=== PATIENT | male | born 1935 | race Caucasian/White ===

== ENCOUNTER 2023-04-07 14:19 | Inpatient (IN) | payer MEDICARE, MEDICAID, SELFPAY ==
[2023-04-07] VITALS (11 sets, daily range): BP systolic 151–220; BP diastolic 68–94; PULSE 62–82; RESP 14–19; TEMP 36.3–37; O2SAT 93–98; BMI 25.9
--- NOTE | 2023-04-07 14:41 | ECG_ITS ---
[facility] Test Date: 2023-04-07 Pat Name: Alex Gomez Department: Room: Gender: Male Celery Tier: : 1935 Requested By: Anthony Tian Order Number: [id number] Jill MD: Ellis Drake M.D. Measurements Intervals [place] Rate: 68 P: 14 VA: 215 QRS: 0 QRSD: 92 T: 12 QT: 413 QTc: 440 Interpretive Statements SINUS RHYTHM WITH FIRST DEGREE AV BLOCK MODERATE VOLTAGE CRITERIA FOR LVH, CONSIDER NORMAL VARIANT [MEETS CRITERIA IN ONE OF: R(aVL), S(V1), R(V5), R(V5/V6)+S(V1)] No previous ECG available for comparison Electronically Signed On 04-07-2023 16:52:16 CDT by Ellis Drake M.D. [email or web address]
--- NOTE | 2023-04-07 15:04 | CTR_ITS ---
PROCEDURE INFORMATION: Exam: CT Head Without Contrast Exam date and time: 04/07/2023 3:36 PM Age: 87 years old Clinical indication: Syncope and collapse; Surgery date: 6+ months; Surgery type: PT not a good historian, evidence of prior surgery seen in scan; Additional info: Hypotension syncope TECHNIQUE: Imaging protocol: Computed tomography of the head without contrast. Radiation optimization: All CT scans at this facility use at least one of these dose optimization techniques: automated exposure control; mA and/or kV adjustment per patient size (includes targeted exams where dose is matched to clinical indication); or iterative reconstruction. REPORTING DATA: Count of CT and Cardiac NM exams in prior 12 months: This patient has received 0 known CTs and 0 known cardiac nuclear medicine studies in the 12 months prior to the current study. COMPARISON: No relevant prior studies available. RADIATION DOSE METRICS: Total DLP (mGy-cm): 1212 FINDINGS: Brain: No hemorrhage. No edema. Moderate diffuse cerebral atrophy with prominence of the bifrontal extra-axial spaces. 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 No mass effect. Cerebral ventricles: No ventriculomegaly. Paranasal sinuses: Visualized sinuses are unremarkable. No fluid levels. Mastoid air cells: Visualized mastoid air cells are well aerated. Bones/joints: Left frontal craniotomy changes. No acute fracture. Soft tissues: Unremarkable. CT/CT head wo con* [id number] IMPRESSION: No acute intracranial abnormality.
--- NOTE | 2023-04-07 15:04 | XRR_ITS ---
PROCEDURE INFORMATION: Exam: XR Chest Exam date and time: 04/07/2023 3:15 PM Age: 87 years old Clinical indication: Other: Syncope; Additional info: Hypotension, syncope TECHNIQUE: Imaging protocol: Radiologic exam of the chest. Views: 1 view. COMPARISON: CT chest [facility] [id number] 12/02/2019 2:52 PM FINDINGS: Lungs: Ill-defined patulous opacities noted in the right lung. Pleural spaces: Unremarkable. No pleural effusion. No pneumothorax. Heart/Mediastinum: Unremarkable. No cardiomegaly. Bones/joints: Unremarkable. XR/XR chest 1V portable [id number] IMPRESSION: Ill-defined patulous opacities in the right lung suspicious for pneumonia.
[2023-04-07 15:41] LABS: Basophils % 0.3 %; Eosinophils # 0.1 10^3/uL (0.0-0.8); Eosinophils % 1.8 %; Hematocrit 39.2 % (42.0-52.0); Lymphocytes % 25.1 %; Mean Corpuscular HGB Conc 33.2 g/dL (30.0-36.0); Mean Corpuscular Hemoglobin 31.9 pg (28.0-34.0); Mean Corpuscular Volume 96.3 fl (80-94); Mean Platelet Volume 11.4 fL (7.4-10.4); Monocytes # 0.7 10^3/uL (0.2-0.9); Monocytes % 9.2 %; Neutrophils # 5.01 10^3/uL (1.8-7.7); Neutrophils % 63.2 %; Nucleated Red Blood Cells % 0 %; Platelet Count 249 10^3/cmm (130-400); Red Blood Count 4.07 10^6/uL (4.1-5.3); Red Cell Distribution Width 13.2 % (12.1-15.1); White Blood Count 7.9 10^3/uL (4.0-10.0)
[2023-04-07 16:00] LABS: Alanine Aminotransferase 17 U/L (0-41); Albumin Level 3.9 g/dL (3.5-5.2); Alkaline Phosphatase 54 U/L (40-130); Anion Gap 17.5 (5-19); Aspartate Amino Transferase 19 U/L (0-40); Blood Urea Nitrogen 22 mg/dL (8-23); C Reactive Protein 25.6 mg/L (0.0-4.9); Calcium 9.1 mg/dL (8.5-10.5); Carbon Dioxide 24 mmol/L (22-29); Chloride 100 mmol/L (98-107); Globulin 3.1 g/dL (1.3-4.6); Glucose 87 mg/dL (65-115); Magnesium 1.9 mg/dL (1.7-2.3); Osmolality Calculated 287 mOsm/kg (285-295); Potassium 4.5 mmol/L (3.5-5.1); Sodium 137 mmol/L (136-145); Total Bilirubin 0.6 mg/dL (0.15-1.2)
--- NOTE | 2023-04-07 16:02 | ED_ITS ---
HPI - Neuro Symptoms/Deficit General: Chief Complaint: Neuro Symptoms/Deficit Stated Complaint: Weakness, Slurred speech Time Seen by Provider: 04/07/23 14:54 History of Present Illness: Patient is here for the ER with complaints of increased weakness mild slurring of his speech and multiple falls over the last 3 to 4 days. Patient does have a stroke and has normal weakness in his right side. But that change in speech and the falls are new. Patient also complains of fever and chills and sudden drops of his blood pressure. Onset (ago): day(s) (Following over the last 3 to 4 days slurring of speech started yesterday) Timing confirmed by: family member Location: right arm and right leg History of same: Yes Severity: mild Quality: weak Relieving factors: none Exacerbating factors: none Context: gradual onset On Anticoagulants: Yes (Just 81 mg of aspirin) Associated symptoms: Reports fevers/chills and weakness; Deny chest pain, nausea or vomiting Treatments Prior to Arrival: none Review of Systems General: Reports: 10 or more systems reviewed and unremarkable except in HPI and below Const: Reports: fever(s) and chills Eyes: Denies: change in vision or photophobia ENMT: Denies: throat pain or odynophagia Card: Denies: chest pain, palpitations or irregular heart rhythm Resp: Reports: non-productive cough; Denies: dyspnea or productive cough GI: Denies: abdominal pain, nausea or vomiting : Denies: flank pain, difficulty urinating or dysuria Musc: Denies: neck pain, back pain or extremity pain Skin/Breast: Denies: rash Neuro: Reports: weakness in extremities and Slurred speech present Psych: Denies: anxiety or depression Endo: Denies: polyuria or polydipsia Ric/Lymph: Denies: easy bruising or easy bleeding PFSH ED PFSH: Social History Smoking and tobacco status: current every day smoker Alcohol intake: never Substance/Drug Use: never Physical Exam Const: COMMON NORMALS: average body habitus, patient oriented x3, no limitations, alert and well nourished HENMT: COMMON NORMALS: normocephalic, atraumatic, external ears normal, Normal external nose present and moist oral mucous membranes HEAD & SCALP: normocep halic and atraumatic NOSE: Normal external nose present EXTERNAL EAR: Yes external ears normal OTHER: Hard of hearing Eye: COMMON NORMALS: Equal, round and reactive pupils present, EOMs intact bilaterally, conjunctivae normal and no scleral icterus CONJUNCTIVA: Yes conjunctivae normal PUPIL: Yes Equal, round and reactive pupils present Neck/C-Spine: COMMON NORMALS: full ROM, no lymphadenopathy, supple, no meningeal signs, no JVD and Thyroid normal THYROID: Thyroid normal Lymph: LYMPHATIC: no lymphadenopathy noted Chest: COMMONS NORMALS: normal inspection of the chest and normal palpation of entire chest wall Resp: COMMON NORMALS: normal respiratory effort, No retractions, No use of accessory muscles and clear to auscultation bilaterally AUSCULTATION: clear to auscultation bilaterally Cardio: COMMON NORMALS: no JVD, regular rate, regular rhythm, S1 normal heart sound present, S2 normal heart sound present, No gallops present (Cardio), No clicks present (Cardio) and No murmurs present (Cardio) RATE: regular rate RHYTHM: regular rhythm HEART SOUNDS: S1 normal heart sound present and S2 normal heart sound present GI: COMMON NORMALS: Normal to inspection, nondistended, normoactive bowel sounds present, Soft to palpation, non-tender, No hepatosplenomegaly present, no masses and no bruits PALPATION: Yes Soft to palpation and Yes No hepatosplenomegaly present : COMMON NORMALS: Yes no CVA tenderness BLADDER/KIDNEY EXAM: Yes no CVA tenderness Back/Pelvis: COMMON NORMALS: no CVA tenderness Extremity: COMMON NORMALS: normal to inspection Neuro: COMMON NORMALS: patient oriented x3 and moves all extremities SENSORIUM/ORIENTATION: Yes alert MENINGEAL SIGNS: Yes no meningeal signs CRANIAL NERVES: Yes CN normal except as noted (Mild slurring of speech) SPEECH: abnormal speech (Mild slurring) MOTOR EXAM: Other motor observations present (Mild weakness in right lower extremity) Course Vital Signs: Vital signs: Vital Signs Temperature 97.4 F L 04/07/23 14:41 Pulse Rate 66 04/07/23 17:19 Respiratory Rate 16 04/07/23 17:19 Blood Pressure 154/78 04/07/23 17:19 Pulse Oximetry 94 04/07/23 17:19 Oxygen Delivery Me thod Room Air 04/07/23 17:19 MDM - Neuro Symptoms/Deficit Medical Decision Making Patient presents to the ER with complaints of falling several times over the last several days he says this is due to his blood pressure suddenly dropping and he numbers going down and his blood pressure rises but he is already on the ground. Patient also has been said he has been having more slurring of his speech and more right-sided weakness over the past couple days but has a history of stroke with right-sided weakness but no slurring of the speech. Physical exam was performed lab work and imaging was obtained chest x-ray showed ill- defined patchy opacity in the right lung suspicious for pneumonia. Head CT was negative lab work was essentially benign other than BUN 22 and creatinine 1.3. Is thought patient will be admitted for further work-up including probable head MRI and echo etc. Dr. Sherman was consulted he agreed with this. Patient will be given Zosyn 3.375 g IV in ER for his pneumonia and be admitted to the floor. Differential Diagnosis Likely cerebrovascular accident and transient cerebral ischemia; Unlikely carpal tunnel syndrome, convulsions, delirium, subarachnoid hemorrhage, peripheral neuropathy or multiple sclerosis Medical Records I reviewed the patient's medical records. Lab Data I reviewed the patient's lab results. 04/07/23 15:17 04/07/23 15:17 Radiology Impressions Chest X-Ray 04/07/23 15:04 IMPRESSION: Ill-defined patulous opacities in the right lung suspicious for pneumonia. Head CT 04/07/23 15:04 IMPRESSION: No acute intracranial abnormality. Laboratory Results WBC 7.9 10^3/uL (4.0-10.0) 04/07/23 15: RBC 4.07 10^6/uL (4.1-5.3) L 04/07/23 15:17 Hgb 13.0 g/dL (11.7-16.6) 04/07/23 15:17 Hct 39.2 % (42.0-52.0) L 04/07/23 15:17 MCV 96.3 fl (80-94) H 04/07/23 15:17 MCH 31.9 pg (28.0-34.0) 04/07/23 15:17 MCHC 33.2 g/dL (30.0-36.0) 04/07/23 15:17 RDW 13.2 % (12.1-15.1) 04/07/23 15:17 Plt Count 249 10^3/cmm (130-400) 04/07/23 15:17 MPV 11.4 fL (7.4-10.4) H 04/07/23 15:17 Neut % (Auto) 63.2 % 04/07/23 15:17 Lymph % (Auto) 25.1 % 04/07/23 15:17 [place] % (Auto) 9.2 % 04/07/23 15:17 Eos % (Auto) 1.8 % 04/07/23 15:17 Baso % (Auto) 0.3 % 04/07/23 15:17 Neut # (Auto) 5.01 10^3/uL (1.8-7.7) 04/07/23 15:17 Lymph # (Auto) 2.0 10^3/uL (0.8-4.8) 04/07/23 15:17 [place] # (Auto) 0.7 10^3/uL (0.2-0.9) 04/07/23 15:17 Eos # (Auto) 0.1 10^3/uL (0.0-0.8) 04/07/23 15:17 Baso # (Auto) 0.0 10^3/uL (0.0-0.1) 04/07/23 15:17 Nucleated RBC % (auto) 0 % 04/07/23 15:17 Nucleated RBCs # 0.0 /100WBC 04/07/23 15:17 Sodium 137 mmol/L (136-145) 04/07/23 15:17 Potassium 4.5 mmol/L (3.5-5.1) 04/07/23 15:17 Chloride 100 mmol/L (98-107) 04/07/23 15:17 Carbon Dioxide 24 mmol/L (22-29) 04/07/23 15:17 Anion Gap 17.5 (5-19) 04/07/23 15:17 BUN 22 mg/dL (8-23) 04/07/23 15:17 Creatinine 1.3 mg/dL (0.7-1.2) H 04/07/23 15:17 GFR Calculation Not Reportable 04/07/23 15:17 Glucose 87 mg/dL (65-115) 04/07/23 15:17 Calculated Osmolality 287 mOsm/kg (285-295) 04/07/23 15:17 Calcium 9.1 mg/dL (8.5-10.5) 04/07/23 15:17 Magnesium 1.9 mg/dL (1.7-2.3) 04/07/23 15:17 Total Bilirubin 0.6 mg/dL (0.15-1.2) 04/07/23 15:17 AST 19 U/L (0-40) 04/07/23 15:17 ALT 17 U/L (0-41) 04/07/23 15:17 Alkaline Phosphatase 54 U/L (40-130) 04/07/23 15:17 C-Reactive Protein 25.6 mg/L (0.0-4.9) H 04/07/23 15:17 Total Protein 7.0 g/dL (6.6-8.7) 04/07/23 15:17 Albumin 3.9 g/dL (3.5-5.2) 04/07/23 15:17 Globulin 3.1 g/dL (1.3-4.6) 04/07/23 15:17 EKG Data EKG 1: I personally reviewed and interpreted this EKG as follows: EKG interpretation date: 04/07/23 EKG interpretation time: 14:55 Interpretation: EKG showed rate of 60 bpm WV of 215, QRS of 92, QTc of 440, sinus rhythm with first-degree AV block, moderate voltage criteria for LVH consider normal variant, no ST-T wave changes. Discharge Plan Discharge Patient Disposition: Admitted As Inpatient Clinical Impression: Cerebrovascular accident, Community acquired pneumonia Condition: Stable Prescriptions: No Action Levemir FlexTouch U-100 Insuln 100 unit/mL (3 mL) insulin pen See Rx Instructions .ROUTE .COMPLEX Rx Instructions: 22 units in the am and 24 units at bedtime aspirin [Adult Low Dose Aspirin] 81 mg tablet,delayed release (DR/EC) 81 mg PO DAILY amlodipine 5 mg tablet 5 mg PO QAM tamsulosin 0.4 mg capsule 0.4 mg PO BEDTIME metformin 1,000 mg tablet 1,000 mg PO BID benazepril 40 mg tablet 40 mg PO QAM glipizide 5 mg tablet See Rx Instructions .ROUTE .COMPLEX Rx Instructions: 5mg po qam and 10mg po qpm metoprolol tartrate 25 mg tablet 25 mg PO BID duloxetine 60 mg capsule,delayed release(DR/EC) 60 mg PO DAILY Referrals: Farhat Dominguez MD [Primary Care Provider] - Coding Level of Care Code ED Pediatric Clinical Nurse Specialist for Carmina Mccarthy
--- NOTE | 2023-04-07 16:16 | PC.PHAR ---
pt and pts family brought in pts medications-pts family didnt bring in the cymbalta 60mg daily filled 04/01/23 90d/s pts family states they think the pt is still taking-also didnt bring in aspirin 81mg but states the pt is taking-
[2023-04-07] MEDS: piperacillin-tazobactam 3.375 GM in sodium chloride 0.9% (plus) 50 ML IV (17:24)
--- NOTE | 2023-04-07 18:02 | CTR_ITS ---
PROCEDURE INFORMATION: Exam: CTA Head Without And With Contrast, Arteriography Exam date and time: 04/07/2023 6:18 PM Age: 87 years old Clinical indication: Weakness; Prior surgery; Surgery date: 6+ months; Surgery type: Tbi unknown time frame. PT not a good historian; Additional info: Slurred speech, right handed weakness TECHNIQUE: Imaging protocol: Computed tomographic angiography of the head without and with contrast. Exam focused on the arteries. 3D rendering (Not supervised by radiologist): MIP and/or 3D reconstructed images were created by the technologist. Radiation optimization: All CT scans at this facility use at least one of these dose optimization techniques: automated exposure control; mA and/or kV adjustment per patient size (includes targeted exams where dose is matched to clinical indication); or iterative reconstruction. Contrast material: OMNI 350; Contrast volume: 100 ml; Contrast route: INTRAVENOUS (IV); REPORTING DATA: Count of CT and Cardiac NM exams in prior 12 months: This patient has received 0 known CTs and 0 known cardiac nuclear medicine studies in the 12 months prior to the current study. COMPARISON: CT head wo con* [id number] 04/07/2023 3:36 PM RADIATION DOSE METRICS: Total DLP (mGy-cm): 1535 FINDINGS: ANTERIOR CIRCULATION: Right internal carotid artery: Diffuse wall calcification of the intracranial segment with mild luminal stenosis. No evident severe stenosis or occlusion. Right middle cerebral artery: No occlusion or significant stenosis. No aneurysm. Right anterior cerebral artery: No occlusion or significant stenosis. No aneurysm. Left internal carotid artery: Diffuse wall calcification of the intracranial segments with mild luminal stenosis. No evident severe stenosis or occlusion. Left middle cerebral artery: No occlusion or significant stenosis. No aneurysm. Left anterior cerebral artery: No occlusion or significant stenosis. No aneurysm. POSTERIOR CIRCULATION: Right vertebral artery: Segments of mild luminal stenosis noted. No occlusion or severe stenosis. No aneurysm. Left vertebral artery: Segments of mild luminal stenosis noted. No occlusion or severe stenosis. No aneurysm. Basilar artery: No occlusion or significant stenosis. No aneurysm. Right posterior cerebral artery: No occlusion or significant stenosis. No aneurysm. Left posterior cerebral artery: No occlusion or significant stenosis. No aneurysm. HEAD: Brain: No definite mass, mass effect, or midline shift. Cerebral ventricles: Normal. No ventriculomegaly. Bones/joints: No acute fracture. Paranasal sinuses: Visualized sinuses are normal. No fluid levels. Mastoid air cells: Visualized mastoids are normal. No mastoid effusion. Soft tissues: Unremarkable. PROCEDURE INFORMATION: Exam: CTA Neck Without And With Contrast Exam date and time: 04/07/2023 6:18 PM Age: 87 years old Clinical indication: Weakness; Prior surgery; Surgery date: 6+ months; Surgery type: Tbi unknown time frame. PT not a good historian; Additional info: Slurred speech, right handed weakness TECHNIQUE: Imaging protocol: Computed tomographic angiography of the neck without and with contrast. 3D rendering (Not supervised by radiologist): MIP and/or 3D reconstructed images were created by the technologist. Radiation optimization: All CT scans at this facility use at least one of these dose optimization techniques: automated exposure control; mA and/or kV adjustment per patient size (includes targeted exams where dose is matched to clinical indication); or iterative reconstruction. Contrast material: OMNI 350; Contrast volume: 100 ml; Contrast route: INTRAVENOUS (IV); REPORTING DATA: Count of CT and Cardiac NM exams in prior 12 months: This patient has received 0 known CTs and 0 known cardiac nuclear medicine studies in the 12 months prior to the current study. COMPARISON: CT head wo con* [id number] 04/07/2023 3:36 PM RADIATION DOSE METRICS: Total DLP (mGy-cm): 1535 FINDINGS: Right common carotid artery: No stenosis. No dissection or occlusion. Right internal carotid artery: Mild stenosis at the origin. No dissection or occlusion. Right external carotid artery: No occlusion or stenosis of the origin. Left common carotid artery: No stenosis. No dissection or occlusion. Left internal carotid artery: Mild stenosis at the origin. No dissection or occlusion. Left external carotid artery: No occlusion or stenosis of the origin. Right vertebral artery: No stenosis. No dissection or occlusion. Left vertebral artery: No stenosis. No dissection or occlusion. Soft tissues: Normal. No significant soft tissue swelling. Bones/joints: No acute fracture. Lungs: 2.8 cm mass noted in the right lung apex. CT/CT angio headneck* [id number] IMPRESSION: No large vessel occlusion. IMPRESSION: 1. Mild stenosis at the origins of the internal carotid arteries. No severe stenosis or occlusion. 2. 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 REFERENCES: NASCET CRITERIA. The degree of stenosis in the cervical segment of the internal carotid artery is based on NASCET criteria. Normal is no stenosis. Mild is less than 50% stenosis. Moderate is 50-69% stenosis. Severe is 70% to 99% stenosis. Total occlusion is no detectable patent lumen.
--- NOTE | 2023-04-07 18:07 | USCV_ITS ---
Alex Gomez Age: 87 Gender: M : 1935 Exam Date: 04/07/2023 19:14 Ordering Phys: Loc Machuca MD Technologist: JEANNETTE Exam Location: [facility] [place] Indication: slurred speech. No history of cardiac intervention per patient. BP: 154 / 78 HR: 69 Rhythm: Sinus Technical Quality: Adequate MEASUREMENTS (Male / Female) Normal Values 2D ECHO LV Diastolic Diameter PLAX 4.4 cm 4.2 - 5.9 / 3.9 - 5.3 cm LV Systolic Diameter PLAX 2.7 cm IVS Diastolic Thickness 1.5 cm 0.6 - 1.0 / 0.6 - 0.9 cm IVS Systolic Thickness 2.2 cm LVPW Diastolic Thickness 1.3 cm 0.6 - 1.0 / 0.6 - 0.9 cm LVPW Systolic Thickness 1.9 cm LVOT Diameter 2.0 cm LV Ejection Fraction 2D Teich 70.3 % LV Ejection Fraction MOD 2C 54.8 % LV Ejection Fraction 2C AL 55.7 % LA Diameter 3.8 cm LA Width 3.9 cm LA Height 4.4 cm RA Width 3.6 cm RA Height 5.0 cm Aorta at Sinotubular Diameter 3.3 cm IVC Diameter 1.6 cm M-MODE Aortic Annulus Diameter 3.6 cm LA Ao Ratio MM 1.1 MV E Point Septal Separation 0.5 cm DOPPLER AV Peak Velocity 94.0 cm/s LVOT Peak Velocity 74.0 cm/s AV Area Cont Eq vti 2.7 cm squared AV Area Cont Eq pk 2.4 cm squared MV Area PHT 2.2 cm squared Mitral E to A Ratio 0.6 MV E' Velocity 34.5 cm/s Mitral E to MV E' Ratio 11.1 Mitral E to LV E' Lateral Ratio 9.7 Mitral E to LV E' Septal Ratio 13.2 TV Peak E Velocity 44.0 cm/s PV Peak Velocity 83.0 cm/s RV Acceleration Time 0.1 s RV Ejection Time 0.3 s RV AcT/ET 0.3 FINDINGS Left Ventricle Left ventricle is normal in size. LV systolic function is normal with EF of 60 to 65%. No regional wall motion abnormalities are seen. Grade 1 diastolic dysfunction Right Ventricle Normal in size and function Right Atrium Normal in size Left Atrium Normal in size Mitral Valve Mild mitral annular calcification is seen. Mild mitral regurgitation. Aortic Valve Aortic valve is thickened. No significant stenosis or regurgitation. Tricuspid Valve Mild tricuspid regurgitation. Insufficient TR jet to calculate RVSP Pulmonic Valve Not well-visualized. Pericardium Normal Aorta Normal in size IVC Not well visualized CONCLUSIONS LV systolic function is normal with EF of 60 to 65%. Grade 1 diastolic dysfunction. Mild mitral regurgitation Mild tricuspid regurgitation. No comparison studies are available Ellis Drake MD (Electronically Signed) Final Date: 08 Apr 2023 12:56 S
--- NOTE | 2023-04-07 18:10 | P.HP_ITS ---
Providers/Chief Complaint Primary Care Provider: Farhat Dominguez MD Chief Complaint: Weakness, Slurred speech History of Present Illness Alex Gomez is a 87 year old male with a past medical history of hypertension, history of COPD, history of insulin-dependent type 2 diabetes mellitus, history of CVAs who presents to [facility] due to slurring of his words, unsteadiness, falls, right-sided weakness, fevers, cough. Currently patient is alert to person, to place, not to time, he is having slurring of his words, having word finding difficulty, he does tell me that he has been having this for the last week, so his last known well normal was roughly a week ago, he tells me for the last week, he has been having slurring of his words, he has been falling, feeling very unsteady on his feet, today he fell and hit his head, that is why he went to an outpatient clinic. He also tells me that he has had a stroke in the past, I am not able to discern if he had any focal neurologic deficits persisting he tells me that it was a bad stroke, but he has been doing fine from it, I was told by the ER provider that he has some residual right- sided deficits, but I was not able to confirm this with patient, he does have some right-sided arm weakness and hand weakness on examination. He has some word finding difficulties on it is very difficult to discern if this is new or not, but definitely has slurring of his words, I cannot see any facial droop. He denies any visual changes. No blurry vision. He tells me he has not been feeling good for the last week, he has been having a cough, fevers he does report smoking, has a diagnosis of COPD, no wheezing, no wheezing on exam he is on room air, he is on normotensive he is afebrile. Denies any nausea, no vomiting, abdominal pain. Denies any cardiovascular history. No chest pain. Does report a prior history of strokes, again he states that the big 1, but he was doing fine he is not exactly able to tell me when he had the stroke he tells me he lives at home with his son who drove him here to the hospital from an outpatient clinic. I was called by the ER provider, as there was concerns for a CVA, and chest x-ray showed pneumonia, currently patient's NIH stroke scale is 6, his last known well normal was roughly a week ago, his head CT had no acute intracranial bleed Review of Systems Const: Reports: fever(s) Card: Denies: chest pain Resp: Reports: dyspnea and non-productive cough GI: Denies: abdominal pain : Denies: flank pain or difficulty urinating Musc: Reports: joint pain Skin/Breast: Denies: rash Neuro: Reports: headache(s), weakness in extremities, lack of coordination, difficulty walking, frequent falls and difficulty communicating thoughts; Denies: numbness in extremities, dizziness or confusion Psych: Denies: anxiety Medications/Allergies Home Medications Medication Instructions Recorded Confirmed Last Taken Type aspirin 81 mg tablet,delayed 81 mg PO DAILY 11/24/19 04/07/23 Unknown History release (Adult Low Dose Aspirin) insulin detemir U-100 100 unit/mL See Rx Instructions .Route .COMPLEX 11/24/19 04/07/23 04/07/23 History (3 mL) subcutaneous pen (Levemir FlexTouch U-100 Insulin) amlodipine 5 mg tablet 5 mg PO QAM 04/07/23 04/07/23 04/07/23 History benazepril 40 mg tablet 40 mg PO QAM 04/07/23 04/07/23 04/07/23 History duloxetine 60 mg capsule,delayed 60 mg PO DAILY 04/07/23 04/07/23 Unknown History release glipizide 5 mg tablet See Rx Instructions .Route .COMPLEX 04/07/23 04/07/23 04/07/23 History metformin 1,000 mg tablet 1,000 mg PO BID 04/07/23 04/07/23 04/07/23 History metoprolol tartrate 25 mg tablet 25 mg PO BID 04/07/23 04/07/23 04/07/23 History tamsulosin 0.4 mg capsule 0.4 mg PO BEDTIME 04/07/23 04/07/23 04/06/23 History Allergies Allergy/AdvReac Type Severity Reaction Status Date / Time Penicillins AdvReac unknown Verified 04/07/23 13:30 PFSH Acute PFSH: Medical History (Updated 04/07/23 @ 18:19 by Loc Machuca MD) Carotid artery occlusion History of BPH History of COPD History of CVA (cerebrovascular accident) History of hypertension History of type 2 diabetes mellitus Surgical History (Updated 04/07/23 @ 18:17 by Loc Machuca MD) History of brain surgery History of cholecystectomy Family History (Updated 04/07/23 @ 18:17 by Loc Machuca MD) Mother Cancer Father Kidney infection Social History Smoking and tobacco status: current every day smoker Alcohol intake: never Substance/Drug Use: never Vitals/I&O/Wt Last Vital Signs Temp 97.4 F L 04/07/23 14:41 Pulse 66 04/07/23 17:19 Resp 16 04/07/23 17:19 BP 154/78 04/07/23 17:19 Pulse Ox 94 04/07/23 17:19 O2 Del Method Room Air 04/07/23 17:19 Weight last 48 hrs Weight 86.636 kg Physical Exam Const: COMMON NORMALS: no acute distress and patient oriented x3 GENERAL APPEARANCE: cooperative, well kempt and well developed HENMT: COMMON NORMALS: normocephalic, Normal external nose present and oropharynx normal HEAD & SCALP: normocephalic FACE & SINUS: normal facial exam NOSE: Normal external nose present MOUTH: Normal oral and palatal mucosa present THROAT: posterior oropharynx normal Eye: COMMON NORMALS: Equal, round and reactive pupils present, EOMs intact bilaterally, conjunctivae normal and no scleral icterus CONJUNCTIVA: Yes conjunctivae normal PUPIL: Yes Equal, round and reactive pupils present Neck/C-Spine: COMMON NORMALS: full ROM, no lymphadenopathy, no meningeal signs, no JVD, Thyroid normal and No carotid bruits THYROID: Thyroid normal Lymph: LYMPHATIC: no lymphadenopathy noted Chest: COMMONS NORMALS: normal inspection of the chest Resp: COMMON NORMALS: normal respiratory effort, No retractions, No use of accessory muscles and clear to auscultation bilaterally AUSCULTATION: clear to auscultation bilaterally Cardio: COMMON NORMALS: regular rate, regular rhythm, S1 normal heart sound present, S2 normal heart sound present, No murmurs present (Cardio) and Peripheral pulses 2+ throughout RATE: regular rate RHYTHM: regular rhythm HEART SOUNDS: S1 normal heart sound present and S2 normal heart sound present PERIPHERAL PULSES: Peripheral pulses 2+ throughout GI: COMMON NORMALS: Normal to inspection, nondistended, normoactive bowel sounds present, Soft to palpation and non-tender PALPATION: Yes Soft to palpation : COMMON NORMALS: Yes no CVA tenderness BLADDER/KIDNEY EXAM: Yes no CVA tenderness Back/Pelvis: COMMON NORMALS: no CVA tenderness Extremity: COMMON NORMALS: normal to inspection, full ROM, capillary refill normal, no calf tenderness and no pedal edema Neuro: OTHER: [id number] abnormal bilaterally Pupils equal round reactive to light Extraocular movements intact Right upper extremity weakness, 3 out of 5 compared to 5 out of 5 on the left Has trouble coordinating on the right Bilateral lower extremity strength difficult to discern, as patient complains of severe bilateral knee pain, but strength is intact bilaterally, [id number] difficult to discern given severe pain Does have word finding difficulty Has slurring of his words Extremely mild right-sided facial droop, Cranial nerves II to XII grossly intact Psych: COMMON NORMALS: mental status grossly normal, Normal thought process present, cooperative and speech normal APPEARANCE: Yes well kempt SPEECH: Yes normal speech THOUGHT PROCESS: Normal thought process present Skin: COMMON NORMALS: turgor normal and no jaundice GENERAL SKIN EXAM: turgor normal Data 04/07/23 15:17 04/07/23 15:17 Micro: Microbiology 04/07/23 16:15 Blood Culture - Preliminary Blood SPECIMEN COLLECTED 04/07/23 16:20 Blood Culture - Preliminary Blood SPECIMEN COLLECTED A&P Assessment and plan (1) Acute CVA (cerebrovascular accident): (2) Pneumonia: (3) Acute kidney injury: (4) History of COPD: (5) History of BPH: (6) History of CVA (cerebrovascular accident): (7) History of hypertension: (8) History of type 2 diabetes mellitus: (9) Cerebrovascular accident: Qualifiers: CVA mechanism: unspecified Qualified Code(s): I63.9 - Cerebral infarction, unspecified (10) Community acquired pneumonia: Qualifiers: Laterality: right Lung location: unspecified part of lung Qualified Code(s): J18.9 - Pneumonia, unspecified organism (11) COPD (chronic obstructive pulmonary disease): (12) Encounter for smoking cessation counseling: Plan Acute CVA -Word finding difficulty, slurring of his words, right upper extremity weakness for the last week, last known well normal unknown, NIH stroke scale 6, out of tPA window -History of recurrent CVAs Plan -CT of head and neck -Neurochecks, aspiration precautions, 90 stroke scale -Telemetry monitoring -IV fluids -Monitor blood pressures closely -PT OT, speech therapy tonyal, nurse's bedside dysphagia eval Pneumonia -Does have COPD -Has radiographic evidence of pneumonia -Has received Zosyn in the emergency room, does have a penicillin allergy will monitor on the floors -Start Rocephin -Start Zosyn -DuoNeb treatments Insulin-dependent type 2 diabetes mellitus, low-dose sliding scale We will get a lipid panel Serial EKGs, serial troponins, telemetry monitoring, cardiac echo MUSHTAQ IV fluids Extensive counseling about smoking cessation counseling, given his COPD, now recurrent CVAs Lovenox for DVT prophylaxis Full code Attestations Medical Necessity Statement*: Patient requires hospitalization, inpatient, greater than 2 minutes, for acute CVA, pneumonia, MUSHTAQ Diagnoses Acute CVA (cerebrovascular accident) I63.9 Pneumonia J18.9 Acute kidney injury N17.9 History of COPD Z87.09 History of BPH Z87.438 History of CVA (cerebrovascular accident) Z86.73 History of hypertension Z86.79 History of type 2 diabetes mellitus Z86.39 Cerebrovascular accident I63.9 CVA mechanism: unspecified Community acquired pneumonia J18.9 Laterality: right Lung location: unspecified part of lung COPD (chronic obstructive pulmonary disease) J44.9 Encounter for smoking cessation counseling Z71.6
[2023-04-07] MEDS: iohexol 350 mg/mL 500 mL Btl (per mL) IV (18:33)
[2023-04-07 19:23] LABS: Add Urine Microscopic? YES; Bilirubin Urine Neg (Negative); Blood Urine Neg (Negative); Glucose Urine UA Norm (Normal); Ketones Urine Negative (Negative); Leukocyte Esterase Urine 2+ (Negative); Nitrate Urine Negative (Negative); Protein Urine 1+ (Negative); RBC Urine 0-4 /hpf (0-2); Specific Gravity, Urine 1.015 (1.005-1.030); Squamous Epithelial Cell Urine 0-4 /hpf (0-5); Urine Appearance Cloudy (CLEAR); Urine Color Yellow (Yellow); Urobilinogen Urine Neg (Negative); WBC Urine >100 /hpf (0-5); pH Urine 5 (5-7)
[2023-04-07 19:24] LABS: Add Urine Culture? Yes; Bacteria Urine 2+ /hpf
[2023-04-07 19:41] LABS: Troponin(5th) Baseline 19 ng/L (0-15)
[2023-04-07 19:43] LABS: Lactic Sepsis W/Reflex 2.3 mmol/L (0.5-2.2)
[2023-04-07 19:51] LABS: NT Pro B Type Natriuretic Pept 441 pg/mL (0-450); Procalcitonin 0.08 ng/mL (0-0.5)
[2023-04-07 20:02] LABS: C Reactive Protein 24.5 mg/L (0.0-4.9)
--- NOTE | 2023-04-07 20:36 | ECG_ITS ---
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 Measurements Intervals [place] Rate: 70 P: 21 GA: 224 QRS: 8 QRSD: 97 T: 59 QT: 403 QTc: 435 Interpretive Statements SINUS RHYTHM WITH FIRST DEGREE AV BLOCK NONSPECIFIC T-WAVE ABNORMALITY Compared to ECG 04/07/2023 14:55:24 T-wave abnormality now present Electronically Signed On 04-08-2023 17:49:57 CDT by Ellis Drake M.D. [id number]
[2023-04-07 20:47] LABS: Reflex Lactate Order REFLEX LACTIC ORDERD
[2023-04-07] MEDS: pantoprazole 40 mg SDV IVP (21:28)
[2023-04-07] MEDS: enoxaparin 40 mg/0.4 mL Syringe SUBCUT (21:28)
[2023-04-07] MEDS: sodium chloride 0.9% 1,000 ML 75 ML IV (21:28)
[2023-04-07] MEDS: tamsulosin 0.4 mg Capsule PO (21:28)
[2023-04-07] MEDS: metoprolol tartrate 25 mg Tablet PO (21:28)
[2023-04-07 21:44] LABS: Glucose Point of Care 133 mg/dL (70-110)
[2023-04-07 21:48] LABS: Troponin 5 2HR 21.76 ng/L (0-15)
[2023-04-07 21:49] LABS: Troponin 5 2HR Delta 2.76 ABS# (0-10)
[2023-04-07 21:50] LABS: Lactic Acid level (Lactate) 2.4 mmol/L (0.5-2.2)
[2023-04-07 22:00] LABS: Chol HDL Ratio 4.47 mg/dL (1.0-5.00); Cholesterol 152 mg/dL (0-200); HDL Cholesterol 34 mg/dL (60-100); LDL Cholesterol Calculated 91 mg/dL (50-129); LDL HDL Ratio 2.68 RATIO (0.00-3.22); Thyroid Stimulating Hormone 3.59 uIU/mL (0.27-4.20); Triglycerides 133 mg/dL (0-150)
[2023-04-07 22:54] LABS: Estmated Average Glucose 146; Hemoglobin A1C 6.7 % (4.0-6.0)
[2023-04-07 23:49] LABS: Adenovirus Not Detected (NOT DETECT); Chlamydia Pneumoniae Not Detected (NOT DETECT); Coronavirus 229E,HKU1,NL63,OC4 Not Detected (NOT DETECT); Human Metapneumovirus Not Detected (NOT DETECT); Human Rhinovirus/Enterovirus Not Detected (NOT DETECT); Influenza A Not Detected (NOT DETECT); Influenza A H1 Not Detected (NOT DETECT); Influenza A H1-2009 Not Detected (NOT DETECT); Influenza A H3 Not Detected (NOT DETECT); Influenza B Not Detected (NOT DETECT); Mycoplasma Pneumoniae Not Detected (NOT DETECT); Parainfluenza Virus Type 1 Not Detected (NOT DETECT); Parainfluenza Virus Type 2 Not Detected (NOT DETECT); Parainfluenza Virus Type 3 Not Detected (NOT DETECT); Parainfluenza Virus Type 4 Not Detected (NOT DETECT); Respiratory Syncytial Virus A Not Detected (NOT DETECT); Respiratory Syncytial Virus B Not Detected (NOT DETECT); SARS-COV-2 Not Detected (NOT DETECT)
[2023-04-08] VITALS (10 sets, daily range): BP systolic 107–171; BP diastolic 42–78; PULSE 62–74; RESP 16–18; TEMP 36.3–37; O2SAT 92–99
--- NOTE | 2023-04-08 00:05 | ECG_ITS ---
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 Measurements Intervals [place] Rate: 60 P: 12 NM: 223 QRS: 12 QRSD: 96 T: 83 QT: 418 QTc: 420 Interpretive Statements SINUS RHYTHM WITH FIRST DEGREE AV BLOCK NONSPECIFIC T-WAVE ABNORMALITY Compared to ECG 04/07/2023 20:36:28 No significant changes Electronically Signed On 04-08-2023 18:00:55 CDT by Ellis Drake M.D. [id number]
[2023-04-08 00:57] LABS: Basophils % 0.5 %; Eosinophils # 0.2 10^3/uL (0.0-0.8); Eosinophils % 2.5 %; Hematocrit 36.5 % (42.0-52.0); Hemoglobin 12.1 g/dL (11.7-16.6); Lymphocytes # 1.7 10^3/uL (0.8-4.8); Lymphocytes % 27.8 %; Mean Corpuscular HGB Conc 33.2 g/dL (30.0-36.0); Mean Corpuscular Hemoglobin 31.3 pg (28.0-34.0); Mean Corpuscular Volume 94.6 fl (80-94); Mean Platelet Volume 11.2 fL (7.4-10.4); Monocytes # 0.6 10^3/uL (0.2-0.9); Neutrophils # 3.66 10^3/uL (1.8-7.7); Nucleated Red Blood Cells % 0 %; Platelet Count 222 10^3/cmm (130-400); Red Blood Count 3.86 10^6/uL (4.1-5.3); Red Cell Distribution Width 13.2 % (12.1-15.1); White Blood Count 6.1 10^3/uL (4.0-10.0)
[2023-04-08 01:23] LABS: Anion Gap 17.2 (5-19); Blood Urea Nitrogen 18 mg/dL (8-23); Calcium 8.3 mg/dL (8.5-10.5); Carbon Dioxide 23 mmol/L (22-29); Chloride 99 mmol/L (98-107); Creatinine Clr Calc Pharmacy 48.5625; Glucose 133 mg/dL (65-115); Magnesium 1.8 mg/dL (1.7-2.3); Osmolality Calculated 284 mOsm/kg (285-295); Phosphorus 3.4 mg/dL (2.5-4.5); Potassium 4.2 mmol/L (3.5-5.1); Sodium 135 mmol/L (136-145)
[2023-04-08 06:35] LABS: Glucose Point of Care 184 mg/dL (70-110)
--- NOTE | 2023-04-08 08:48 | CT_ITS ---
WS: [id number] CT CHEST ANGIOGRAPHY WITH REFORMATS HISTORY: lung mass TECHNIQUE: Contiguous axial images are obtained through the chest during arterial injection of intrav enous contrast. Images are reconstructed to evaluate the pulmonary arteries. MIP imaging also reviewe d. All CT scans at [facility] use at least one of these dose optimization techniques: automat ed exposure control; mA and/or kV adjustment per patient size (includes targeted exams where dose is matched to clinical indication); or iterative reconstruction. CONTRAST: Omnipaque 350; 100 mL IV. DLP: 377.86 mGy.cm COMPARISON: 12/02/2019. Good opacification of the pulmonary arteries. No filling defects are identified. Opacification become s limited in the subsegmental branches. Moderate atherosclerosis thoracic aorta. No aneurysm. Mild en largement of the LEFT heart chambers. No pericardial or pleural effusions. Mild dependent changes at the RIGHT lung base. No adenopathy. Solid well-circumscribed mass posterior RIGHT upper lobe extends over a length of 2.5 cm. Transverse diameter 2.0 cm and anterior posterior diameter 2.1 cm. New since 12/02/2019. Benign granuloma LEFT up per lobe. Breathing motion artifact. Mild hepatic steatosis. No adrenal mass. Low-attenuation 13 mm mass in the RIGHT lobe of the liver in determinate. Increased density in the expected location of the gallbladder. Patient is status post ch olecystectomy. Spleen is incompletely included but does appear prominent measuring at least 14 cm in length as seen on the localizer. Extensive calcification within the periphery of the spleen with vari able density. May be a prior splenic hemorrhage which has resolved. Similar findings were seen on a s tudy from 2019. Splenic artery calcifications. No destructive bone lesions. CT/CT angio chest PE protcl [id number] IMPRESSION: 1. No pulmonary embolism. 2. Solid nodule RIGHT upper lobe measures 2.0 x 2.1 x 2.5 cm. Concerning for n eoplasm until proven otherwise. Recommend follow-up PET/CT imaging. 3. Blush-like area of enhancement seen on the last few images of this exam. St atus post cholecystectomy. Spleen also appears enlarged. Indeterminate RIGHT he patic lobe focus. Consider follow-up CT abdomen and pelvis with IV and oral con trast for further evaluation. Recommend at least a 24-hour delay between this C T angiogram and any follow-up imaging with contrast. Notified Loc Machuca MD at 04/08/2023 11:27 AM.
[2023-04-08] MEDS: iohexol 350 mg/mL 500 mL Btl (per mL) IV (10:02)
[2023-04-08] MEDS: duloxetine 60 mg Capsule PO (10:27)
[2023-04-08] MEDS: metoprolol tartrate 25 mg Tablet PO ×2 (10:27→20:34)
[2023-04-08] MEDS: insulin lispro 100 unit/1 mL SUBCUT ×2 (10:28→12:52)
[2023-04-08] MEDS: azithromycin 500 MG in sodium chloride 0.9% 250 ML 250 MG IV (10:28)
[2023-04-08] MEDS: aspirin 81 mg EC Tablet PO (10:28)
[2023-04-08] MEDS: clopidogrel 75 mg Tablet PO (10:28)
[2023-04-08] MEDS: sodium chloride 0.9% 1,000 ML 75 ML IV ×2 (11:04→20:34)
[2023-04-08] MEDS: cefTRIAXone 1,000 MG in sodium chloride 0.9% (plus) 50 ML 100 MG IV (11:09)
--- NOTE | 2023-04-08 11:28 | US_ITS ---
WS: [id number] Complete ABDOMINAL ULTRASOUND HISTORY: liver metastases? Splenic mets? from lung ca COMPARISON: CT 04/08/2023. Liver: 17.5 cm in length. Mildly enlarged liver. In the central RIGHT lobe of the liver there is a cy st measuring 1.5 cm which was recently described on CT exam. No bile duct dilatation. Portal Vein: Normal hepatopetal flow with monophasic waveform. Gallbladder: Normally distended gallbladder with no stones or wall thickening. CBD: 0.4 cm Pancreas: Normal size and echogenicity. Right kidney: 12.6 cm x 5.4 x 5.0 cm. Cortex:1.1 cm. Normal size and echogenicity. No hydronephrosis or mass. Left kidney: 12.6 cm x 3.1 cm x 4.4 cm. Cortex: 1.2 cm. Normal size and echogenicity. No hydronephrosis or mass. Spleen: Spleen is normal size at 11.2 cm. There are a few peripheral calcifications. No mass identifi ed. Aorta and IVC: Unremarkable abdominal aorta and IVC. US/US abdomen complete* [id number] Impression: 1. Hepatic cyst 1.5 cm RIGHT lobe. 2. No splenic mass identified. 3. Normal gallbladder.
[2023-04-08 11:32] LABS: Glucose Point of Care 376 mg/dL (70-110)
--- NOTE | 2023-04-08 16:29 | PC.NURSE ---
OJ given 4 oz @5685
[2023-04-08 17:04] LABS: Glucose Point of Care 68 mg/dL (70-110)
[2023-04-08 17:04] LABS: Glucose Point of Care 66 mg/dL (70-110)
[2023-04-08 17:04] LABS: Glucose Point of Care 88 mg/dL (70-110)
--- NOTE | 2023-04-08 17:35 | PM.PN ---
Subjective Subjective: - Patient was seen multiple times throughout the morning -Continues have slurring of his words, -Weakness has resolved, no significant right-sided weakness that I could detect -Spoke to physical therapy certainly he is very unsteady on his feet, risk of falls, -I went over his CT head and neck, concerns for right upper lobe lung mass, ordered CTA -CTA ordered, discussed with Dr. Parker discussed test results, he has a right upper lobe nodule, concerning for neoplasm, given his history of smoking -I had an extensive meeting with patient, and his family, son at bedside -Discussed his CVA, son says that he wants to take him home with home health care eventually, -Discussed with him his pneumonia, -Son tells me that his falls, slurring his weakness is new -Discussed my concerns of him going home he needs to have home health care and monitoring as he is high risk of falls -Discussed with family and patient about his lung mass, concerning for neoplasm given his smoking, discussed future directives including following up with pulmonary, consideration of lung biopsy versus PET scan depending on his goals of care -Spoke to pulmonary, they will review images, consider closer follow-up -Patient and family voiced understanding, all questions answered, agreed to proceed Vitals/I&O/Wt Last Vital Signs Temp 97.9 F 04/08/23 16:00 Pulse 67 04/08/23 16:00 Resp 17 04/08/23 16:00 BP 149/65 04/08/23 16:00 Pulse Ox 94 04/08/23 16:00 O2 Del Method Room Air 04/08/23 16:00 04/08/23 04/08/23 04/08/23 06:59 14:59 22:59 Intake Total 1900 / 1900 Output Total 850 / 850 850 / 850 Balance -850 / -680 1050 / 1050 Weight last 48 hrs Weight 85.321 kg Weight 86.636 kg Physical Exam Const: COMMON NORMALS: no acute distress and patient oriented x3 Resp: COMMON NORMALS: normal respiratory effort, No retractions and No use of accessory muscles OTHER: Lungs clear to auscultation Cardio: COMMON NORMALS: regular rate, regular rhythm, S1 normal heart sound present and S2 normal heart sound present RATE: regular rate RHYTHM: regular rhythm HEART SOUNDS: S1 normal heart sound present and S2 normal heart sound present GI: COMMON NORMALS: Normal to inspection, nondistended, normoactive bowel sounds present and non-tender Extremity: COMMON NORMALS: no pedal edema Neuro: COMMON NORMALS: patient oriented x3, CN's II-XII intact bilaterally, moves all extremities and no focal motor deficits OTHER: Does have slurring of his words mild, no facial droop does have some word finding difficulty Psych: COMMON NORMALS: mental status grossly normal Data 04/08/23 00:43 04/08/23 00:43 Micro: Microbiology 04/07/23 16:20 Blood Culture - Preliminary Blood NEGATIVE TO DATE 04/07/23 16:15 Blood Culture - Preliminary Blood NEGATIVE TO DATE Other data: Reviewed CT angiogram of the chest, does show right upper lobe solid nodule Reviewed blood work A&P Assessment and plan (1) Acute CVA (cerebrovascular accident): (2) Pneumonia: (3) Acute kidney injury: (4) History of COPD: (5) History of BPH: (6) History of CVA (cerebrovascular accident): (7) History of hypertension: (8) History of type 2 diabetes mellitus: (9) Cerebrovascular accident: Qualifiers: CVA mechanism: unspecified Qualified Code(s): I63.9 - Cerebral infarction, unspecified (10) Community acquired pneumonia: Qualifiers: Laterality: right Lung location: unspecified part of lung Qualified Code(s): J18.9 - Pneumonia, unspecified organism (11) COPD (chronic obstructive pulmonary disease): (12) Encounter for smoking cessation counseling: (13) Mass of upper lobe of right lung: Plan Acute CVA -Word finding difficulty, slurring of his words, right upper extremity weakness for the last week, last known well normal unknown, NIH stroke scale 6, out of tPA window -History of recurrent CVAs Plan -Neurochecks, aspiration precautions, NIH stroke scale -Telemetry monitoring -IV fluids -Aspirin, and, plan legs -Monitor blood pressures closely -PT OT, speech therapy eval, nurse's bedside dysphagia eval Pneumonia -Does have COPD -Has radiographic evidence of pneumonia -Has received Zosyn in the emergency room, does have a penicillin allergy will monitor on the floors -Continue Rocephin -continue Zosyn -DuoNeb treatments Solid nodule RIGHT upper lobe measures 2.0 x 2.1 x 2.5 cm. Concerning for neoplasm until proven otherwise. Recommend follow-up PET/CT imaging. -Discussed with Dr. Parker -Discussed with pulmonary -We will have patient follow-up with pulmonary as outpatient Insulin-dependent type 2 diabetes mellitus, low-dose sliding scale Serial EKGs, serial troponins, telemetry monitoring, cardiac echo MUSHTAQ IV fluids Extensive counseling about smoking cessation counseling, given his COPD, now recurrent CVAs Lovenox for DVT prophylaxis Full code Spoke to nursing staff, spoke to patient, spoke to patient's family, spoke to specialist, reviewed blood work reviewed CT angiogram of the chest Attestations Medical Necessity Statement*: Patient requires hospitalization for acute CVA, pneumonia, right upper lobe mass, nodule, inpatient, greater than 2 midnights Diagnoses Acute CVA (cerebrovascular accident) I63.9 Pneumonia J18.9 Acute kidney injury N17.9 History of COPD Z87.09 History of BPH Z87.438 History of CVA (cerebrovascular accident) Z86.73 History of hypertension Z86.79 History of type 2 diabetes mellitus Z86.39 Cerebrovascular accident I63.9 CVA mechanism: unspecified Community acquired pneumonia J18.9 Laterality: right Lung location: unspecified part of lung COPD (chronic obstructive pulmonary disease) J44.9 Encounter for smoking cessation counseling Z71.6 Mass of upper lobe of right lung R91.8
[2023-04-08] MEDS: enoxaparin 40 mg/0.4 mL Syringe SUBCUT (20:33)
[2023-04-08] MEDS: pantoprazole 40 mg SDV IVP (20:34)
[2023-04-08] MEDS: tamsulosin 0.4 mg Capsule PO (20:34)
[2023-04-08 20:59] LABS: Glucose Point of Care 249 mg/dL (70-110)
[2023-04-09] VITALS (13 sets, daily range): BP systolic 140–197; BP diastolic 67–83; PULSE 65–76; RESP 12–20; TEMP 36.6–37; O2SAT 93–96
[2023-04-09 04:12] LABS: Basophils % 0.3 %; Eosinophils # 0.1 10^3/uL (0.0-0.8); Eosinophils % 2.2 %; Hematocrit 37.2 % (42.0-52.0); Hemoglobin 12.4 g/dL (11.7-16.6); Lymphocytes # 1.4 10^3/uL (0.8-4.8); Lymphocytes % 24.8 %; Mean Corpuscular HGB Conc 33.3 g/dL (30.0-36.0); Mean Corpuscular Hemoglobin 32.2 pg (28.0-34.0); Mean Corpuscular Volume 96.6 fl (80-94); Mean Platelet Volume 11.8 fL (7.4-10.4); Monocytes # 0.5 10^3/uL (0.2-0.9); Monocytes % 8.1 %; Neutrophils # 3.72 10^3/uL (1.8-7.7); Neutrophils % 64.3 %; Nucleated Red Blood Cells % 0 %; Platelet Count 230 10^3/cmm (130-400); Red Blood Count 3.85 10^6/uL (4.1-5.3); Red Cell Distribution Width 13.2 % (12.1-15.1); White Blood Count 5.8 10^3/uL (4.0-10.0)
[2023-04-09 04:36] LABS: Anion Gap 15.1 (5-19); Blood Urea Nitrogen 17 mg/dL (8-23); Calcium 8.1 mg/dL (8.5-10.5); Carbon Dioxide 22 mmol/L (22-29); Chloride 102 mmol/L (98-107); Glucose 244 mg/dL (65-115); Osmolality Calculated 290 mOsm/kg (285-295); Potassium 4.1 mmol/L (3.5-5.1); Sodium 135 mmol/L (136-145)
[2023-04-09 06:28] LABS: Glucose Point of Care 242 mg/dL (70-110)
[2023-04-09] MEDS: aspirin 81 mg EC Tablet PO (08:44)
[2023-04-09] MEDS: cefTRIAXone 1,000 MG in sodium chloride 0.9% (plus) 50 ML 100 MG IV (08:44)
[2023-04-09] MEDS: clopidogrel 75 mg Tablet PO (08:44)
[2023-04-09] MEDS: metoprolol tartrate 25 mg Tablet PO ×2 (08:44→21:58)
[2023-04-09] MEDS: duloxetine 60 mg Capsule PO (08:44)
[2023-04-09] MEDS: insulin lispro 100 unit/1 mL SUBCUT ×3 (08:50→17:26)
[2023-04-09] MEDS: azithromycin 500 MG in sodium chloride 0.9% 250 ML 250 MG IV (09:31)
[2023-04-09 12:02] LABS: Glucose Point of Care 253 mg/dL (70-110)
--- NOTE | 2023-04-09 12:29 | PC.CHAP ---
Pastoral Care Encounter/Spiritual Assessment Type of Contact [] Declined zinc etcher visit [] Patient/Family/Request visit [] Outpatient visit [] Follow-up visit [] Physician referral [] Code/Alert [x] Routine visit [] Staff referral [] Actively dying [] Patient sleeping [] Family support [] [] Out of room [] Palliative care [] [x] Receiving care in room [] Pre-surgical visit [] Trauma [] Long length of stay [] ICU visit [] Other: Relational/Emotional Strength [] Patient feels connected with others/family/visitors/staff [] Distress [] Loneliness/isolation [] Abandonment Spirituality of Patient [] Person of Naila [] Attends Voodoo of their Naila [] Believes in Prayer [] Reads Bible or Samaritan materials [] There are Spiritual issues to be addressed Tailer In Interventions [] Prayer [] Active listening [] Non-anxious presence [] Spiritual/emotional support [] Crisis/trauma care [] Spiritual counseling [] Bereavement support [] Provided bereavement packet [] Provided Bible/devotional materials [] Provided toy/stuffed animal, coloring book to patient or family member [] Provided Communion [] Anointing/[place] [] Salvation [] Completed spiritual assessment [] Other: Impact on Illness or Injury [] Angry [] Fearful [] Anxious [] Often cries [] Exhaustion [] Unable to work [] Unable to attend buddhist [] Unable to walk/stand [] Unable to read [] Unable to drive [] Unable to eat/drink [] Unable to sleep [] Unable to be with family [] Patient intubated [] Other: Summary visited feels good and a good attitude well go home Time spent with patient 10 mins
[2023-04-09 16:52] LABS: Glucose Point of Care 191 mg/dL (70-110)
--- NOTE | 2023-04-09 17:24 | P.PN_ITS ---
Subjective Subjective: Patient was seen this morning, he is quite upset, he tells me he does not want to go to a long-term facility wants to go home however family at bedside are trying to convince him to go to a long-term facility for rehab given his weakness, high risk of falls, I did have an extensive family meeting, about patient's goals of care, patient has a lung mass, I went over with family about interventions including PET scan, possible biopsy, monitoring, however they want to continue to talk amongst themselves, talk with GI, I spent over 40 minutes talking with family about his goals of care, his stroke, his pneumonia, I also spoke to patient, but he is not ready to make a decision, he really wants to go home, patient was seen multiple times including with case management eventually patient was agreeable to go to long-term facility I spent over 80 minutes with patient and family and in coordinating care Vitals/I&O/Wt Last Vital Signs Temp 98.2 F 04/09/23 16:00 Pulse 67 04/09/23 16:00 Resp 18 04/09/23 16:00 BP 178/78 04/09/23 16:00 Pulse Ox 96 04/09/23 16:00 O2 Del Method Room Air 04/09/23 16:00 04/09/23 04/09/23 04/09/23 06:59 14:59 22:59 Intake Total 240 / 2972.5 1870 / 1870 Output Total 1300 / 2450 850 / 850 Balance -1060 / 522.5 1020 / 1020 Weight last 48 hrs Weight 85.321 kg Physical Exam Const: COMMON NORMALS: no acute distress and patient oriented x3 Resp: COMMON NORMALS: normal respiratory effort, No retractions, No use of accessory muscles and clear to auscultation bilaterally AUSCULTATION: clear to auscultation bilaterally Cardio: COMMON NORMALS: regular rate, regular rhythm, S1 normal heart sound present and S2 normal heart sound present RATE: regular rate RHYTHM: regular rhythm HEART SOUNDS: S1 normal heart sound present and S2 normal heart sound present GI: COMMON NORMALS: Normal to inspection, nondistended, normoactive bowel sounds present and non-tender Extremity: COMMON NORMALS: no pedal edema Neuro: COMMON NORMALS: patient oriented x3 Psych: COMMON NORMALS: mental status grossly normal Data 04/09/23 03:04 04/09/23 03:04 Micro: Microbiology 04/07/23 18:50 Urine Culture - Preliminary Urine,Clean Catch 04/07/23 16:20 Blood Culture - Preliminary Blood NEGATIVE TO DATE 04/07/23 16:15 Blood Culture - Preliminary Blood NEGATIVE TO DATE A&P Assessment and plan (1) Acute CVA (cerebrovascular accident): (2) Pneumonia: (3) Acute kidney injury: (4) History of COPD: (5) History of BPH: (6) History of CVA (cerebrovascular accident): (7) History of hypertension: (8) History of type 2 diabetes mellitus: (9) Cerebrovascular accident: Qualifiers: CVA mechanism: unspecified Qualified Code(s): I63.9 - Cerebral infarction, unspecified (10) Community acquired pneumonia: Qualifiers: Laterality: right Lung location: unspecified part of lung Qualified Code(s): J18.9 - Pneumonia, unspecified organism (11) COPD (chronic obstructive pulmonary disease): (12) Encounter for smoking cessation counseling: (13) Mass of upper lobe of right lung: Plan Acute CVA -Word finding difficulty, slurring of his words, right upper extremity weakness for the last week, last known well normal unknown, NIH stroke scale 6, out of tPA window -History of recurrent CVAs Plan -Neurochecks, aspiration precautions, NIH stroke scale -Telemetry monitoring -IV fluids -Aspirin, and, plan legs -Monitor blood pressures closely -PT OT, speech therapy eval, nurse's bedside dysphagia eval -Plan on skilled rehab Pneumonia -Does have COPD -Has radiographic evidence of pneumonia -Has received Zosyn in the emergency room, does have a penicillin allergy will monitor on the floors -Continue Rocephin -Continue azithromycin -DuoNeb treatments Solid nodule RIGHT upper lobe measures 2.0 x 2.1 x 2.5 cm. Concerning for neoplasm until proven otherwise. Recommend follow-up PET/CT imaging. -Discussed with Dr. Parker -Discussed with pulmonary -We will have patient follow-up with pulmonary as outpatient Insulin-dependent type 2 diabetes mellitus, low-dose sliding scale, A1c 6.7 Serial EKGs, serial troponins, telemetry monitoring, cardiac echo MUSHTAQ IV fluids Extensive counseling about smoking cessation counseling, given his COPD, now recurrent CVAs Lovenox for DVT prophylaxis Full code Spoke to nursing staff, spoke to patient, spoke to patient's family, Attestations Medical Necessity Statement*: Patient requires hospitalization for acute CVA, pneumonia, pulmonary nodule, Coding Level of Care Code 82748 High Time for a total of 80 minutes, includes reviewing past or interval history, examining/interviewing patient, placing orders, counseling patient/family/other support, updating patient/family/other support, discussing plan of care with staff, communicating with other healthcare providers, documenting encounter and coordinating care Diagnoses Acute CVA (cerebrovascular accident) I63.9 Pneumonia J18.9 Acute kidney injury N17.9 History of COPD Z87.09 History of BPH Z87.438 History of CVA (cerebrovascular accident) Z86.73 History of hypertension Z86.79 History of type 2 diabetes mellitus Z86.39 Cerebrovascular accident I63.9 CVA mechanism: unspecified Community acquired pneumonia J18.9 Laterality: right Lung location: unspecified part of lung COPD (chronic obstructive pulmonary disease) J44.9 Encounter for smoking cessation counseling Z71.6 Mass of upper lobe of right lung R91.8
[2023-04-09 20:16] LABS: Glucose Point of Care 188 mg/dL (70-110)
[2023-04-09] MEDS: enoxaparin 40 mg/0.4 mL Syringe SUBCUT (21:58)
[2023-04-09] MEDS: tamsulosin 0.4 mg Capsule PO (21:59)
[2023-04-09] MEDS: pantoprazole 40 mg SDV IVP (22:33)
[2023-04-10] VITALS (7 sets, daily range): BP systolic 141–187; BP diastolic 59–89; PULSE 59–69; RESP 15–18; TEMP 36.6–36.8; O2SAT 94–96
[2023-04-10 01:37] LABS: Basophils % 0.2 %; Eosinophils # 0.1 10^3/uL (0.0-0.8); Eosinophils % 2.1 %; Hematocrit 36.4 % (42.0-52.0); Hemoglobin 12.3 g/dL (11.7-16.6); Lymphocytes # 1.6 10^3/uL (0.8-4.8); Lymphocytes % 23.9 %; Mean Corpuscular HGB Conc 33.8 g/dL (30.0-36.0); Mean Corpuscular Hemoglobin 31.9 pg (28.0-34.0); Mean Corpuscular Volume 94.5 fl (80-94); Mean Platelet Volume 11.7 fL (7.4-10.4); Monocytes # 0.6 10^3/uL (0.2-0.9); Neutrophils % 64.5 %; Nucleated Red Blood Cells % 0 %; Platelet Count 221 10^3/cmm (130-400); Red Blood Count 3.85 10^6/uL (4.1-5.3); Red Cell Distribution Width 12.9 % (12.1-15.1); White Blood Count 6.5 10^3/uL (4.0-10.0)
[2023-04-10 02:03] LABS: Blood Urea Nitrogen 15 mg/dL (8-23); Calcium 8.1 mg/dL (8.5-10.5); Carbon Dioxide 21 mmol/L (22-29); Chloride 104 mmol/L (98-107); Glucose 212 mg/dL (65-115); Osmolality Calculated 293 mOsm/kg (285-295); Sodium 138 mmol/L (136-145)
[2023-04-10 06:41] LABS: Glucose Point of Care 256 mg/dL (70-110)
[2023-04-10] MEDS: cefdinir 300 MG CAPSULE PO (08:55)
[2023-04-10] MEDS: lisinopril 10 mg Tablet PO (08:56)
[2023-04-10] MEDS: insulin lispro 100 unit/1 mL SUBCUT (08:56)
[2023-04-10] MEDS: duloxetine 60 mg Capsule PO (08:56)
[2023-04-10] MEDS: clopidogrel 75 mg Tablet PO (08:56)
[2023-04-10] MEDS: aspirin 81 mg EC Tablet PO (08:56)
[2023-04-10] MEDS: metoprolol tartrate 25 mg Tablet PO (08:56)
[2023-04-10] MEDS: amlodipine 10 mg Tablet PO (08:56)
--- NOTE | 2023-04-10 11:12 | PM.DCS ---
Discharge Providers Date of Admission: 04/07/23 19:00 Date of Discharge: April 10, 2023 Attending Provider at Admission: Loc Machuca MD Attending Provider at Discharge: Loc Machuca MD Primary Care Provider: Farhat Dominguez MD Diagnoses at Discharge Discharge Diagnosis (1) Acute CVA (cerebrovascular accident): Status: Acute (2) Pneumonia: Status: Acute (3) Acute kidney injury: Status: Acute (4) History of COPD: Status: Acute (5) History of BPH: Status: Acute (6) History of CVA (cerebrovascular accident): Status: Acute (7) History of hypertension: Status: Acute (8) History of type 2 diabetes mellitus: Status: Acute (9) Cerebrovascular accident: Status: Acute Qualifiers: CVA mechanism: unspecified Qualified Code(s): I63.9 - Cerebral infarction, unspecified (10) Community acquired pneumonia: Status: Acute Qualifiers: Laterality: right Lung location: unspecified part of lung Qualified Code(s): J18.9 - Pneumonia, unspecified organism (11) COPD (chronic obstructive pulmonary disease): Status: Acute (12) Encounter for smoking cessation counseling: Status: Acute (13) Mass of upper lobe of right lung: Status: Acute Reason for Visit Reason for Visit: Weakness, Slurred speech Hospital Course Hospital Course Alex Gomez is a 87 year old male with a past medical history of hypertension, history of COPD, history of insulin-dependent type 2 diabetes mellitus, history of CVAs who presents to [facility] due to slurring of his words, unsteadiness, falls, right-sided weakness, fevers, cough.? Currently patient is alert to person, to place, not to time, he is having slurring of his words, having word finding difficulty, he does tell me that he has been having this for the last week, so his last known well normal was roughly a week ago, he tells me for the last week, he has been having slurring of his words, he has been falling, feeling very unsteady on his feet, today he fell and hit his head, that is why he went to an outpatient clinic.? He also tells me that he has had a stroke in the past, I am not able to discern if he had any focal neurologic deficits persisting he tells me that it was a bad stroke, but he has been doing fine from it, I was told by the ER provider that he has some residual right-sided deficits, but I was not able to confirm this with patient, he does have some right-sided arm weakness and hand weakness on examination.? He has some word finding difficulties on it is very difficult to discern if this is new or not, but definitely has slurring of his words, I cannot see any facial droop.? He denies any visual changes.? No blurry vision.? He tells me he has not been feeling good for the last week, he has been having a cough, fevers he does report smoking, has a diagnosis of COPD, no wheezing, no wheezing on exam he is on room air, he is on normotensive he is afebrile.? Denies any nausea, no vomiting, abdominal pain.? Denies any cardiovascular history.? No chest pain.? Does report a prior history of strokes, again he states that the big 1, but he was doing fine he is not exactly able to tell me when he had the stroke he tells me he lives at home with his son who drove him here to the hospital from an outpatient clinic.? I was called by the ER provider, as there was concerns for a CVA, and chest x-ray showed pneumonia, currently patient's NIH stroke scale is 6, his last known well normal was roughly a week ago, his head CT had no acute intracranial bleed Patient was admitted to [facility] for acute CVA, NIH stroke scale 6, out of tPA window, received PT OT, aspirin, Plavix, IV fluids, permissive hypertension, monitor as an inpatient. Overall patient clinically improved, continue to have slurring of his words, discharged to assisted facility for rehab, discharged on aspirin 81 mg daily atorvastatin 40 mg daily, Plavix for 21 more days, follow-up with neurology For patient's pneumonia, received antibiotic treatments as inpatient, overall clinically improved, discharged on 5 more days of cefdinir For patient's UTI, discharged on cefdinir For patient's right upper lobe solid nodule, concerning for neoplasm given his smoking history, I had extensive discussion with family and about goals of care, patient does not want to have surgery, he is not very keen on chemotherapy, he is willing to consider biopsy, PET scan, possible immunotherapy, but wants to discuss this with pulmonary in detail we will have patient follow-up with pulmonary as outpatient Hypertension, patient does require slow blood pressure control, will have patient's mcc slowly titrate his blood pressure medications For type 2 diabetes mellitus, discharged on Lantus 5 units twice daily, low-dose sliding scale -Inject levemir 5 units q12h -Please monitor your blood sugars closely -Monitor your blood sugars 3 times daily as after meals -Please record your blood sugars, and a blood sugar log -For your NovoLog -Please inject blood sugar after meals based on sliding scale provided -Do not inject insulin if you do not eat as hypoglycemia kills -This is a NovoLog sliding scale -Insulin sliding ?fingerstick? Insulin ?141-180?0 units/sq 181-220?2 units/sq ?221-260?4 units/sq ?261-300 6 units/sq ?301-350?8 units/sq ?351-400 10 units/sq ?401-450?12 units/sq >450? 14units/sq -If your blood sugar is greater than 500 go to the emergency room -If your blood sugar is less than 60 or at anytime you feel lightheaded or dizzy or diaphoretic or have chest palpitations check your blood sugar, and eat a hard candy or drink orange juice and go immediately to the emergency room -Remember hypoglycemia kills, so if his blood sugar is less than 60 we have to increase it by taking in a sugary meal such as a hard candy or orange juice and go to the emergency room -If you have any questions please call us where here to help -monitor blood pressure closely, slowly lower blood pressure -take aspirin -take plavix for 19 more days then stop -take atorvastatin 40mg once daily -please have primary care recheck blood work in one week Physical Exam Const: COMMON NORMALS: no acute distress and patient oriented x3 Resp: COMMON NORMALS: normal respiratory effort, No retractions, No use of accessory muscles and clear to auscultation bilaterally AUSCULTATION: clear to auscultation bilaterally Cardio: COMMON NORMALS: regular rate, regular rhythm, S1 normal heart sound present and S2 normal heart sound present RATE: regular rate RHYTHM: regular rhythm HEART SOUNDS: S1 normal heart sound present and S2 normal heart sound present GI: COMMON NORMALS: Normal to inspection, nondistended, normoactive bowel sounds present and non-tender Extremity: COMMON NORMALS: no pedal edema Neuro: COMMON NORMALS: patient oriented x3 Psych: COMMON NORMALS: mental status grossly normal Discharge Data Studies Completed and Pending Completed Studies During Hospitalization Category Date Time Status CT angio chest PE protcl [id number] Routine Cat Scan 04/08/23 08:[address] angio head neck [CT angio headneck* [id number]] Cat Scan 04/07/23 18:[address] head wo con* [id number] Stat Cat Scan 04/07/23 15:04 Completed XR chest 1V portable [id number] Stat Exams 04/07/23 15:04 Completed CV. echo complete* [id number] Routine Ultrasound 04/07/23 18:07 Completed US abdomen complete* [id number] Routine Ultrasound 04/08/23 11:28 Completed Pending at discharge Category Date Time Status Basic Metabolic Panel AM LABS Lab 04/11/23 04:00 Ordered Blood Culture Stat Lab 04/07/23 16:15 Results Complete Blood Count w/Auto AM LABS Lab 04/11/23 04:00 Ordered Sputum Culture and Gram Stain Stat Lab 04/07/23 18:07 Uncollected Urine Culture Stat Lab 04/07/23 18:50 Results Radiology Impressions Chest X-Ray 04/07/23 15:04 IMPRESSION: Ill-defined patulous opacities in the right lung suspicious for pneumonia. Head CT 04/07/23 15:04 IMPRESSION: No acute intracranial abnormality. Head/Neck CTA 04/07/23 18:02 IMPRESSION: No large vessel occlusion. IMPRESSION: 1. Mild stenosis at the origins of the internal carotid arteries. No severe stenosis or occlusion. 2. 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 REFERENCES: NASCET CRITERIA. The degree of stenosis in the cervical segment of the internal carotid artery is based on NASCET criteria. Normal is no stenosis. Mild is less than 50% stenosis. Moderate is 50-69% stenosis. Severe is 70% to 99% stenosis. Total occlusion is no detectable patent lumen. Chest CTA 04/08/23 08:48 IMPRESSION: 1. No pulmonary embolism. 2. Solid nodule RIGHT upper lobe measures 2.0 x 2.1 x 2.5 cm. Concerning for neoplasm until proven otherwise. Recommend follow-up PET/CT imaging. 3. Blush-like area of enhancement seen on the last few images of this exam. Status post cholecystectomy. Spleen also appears enlarged. Indeterminate RIGHT hepatic lobe focus. Consider follow-up CT abdomen and pelvis with IV and oral contrast for further evaluation. Recommend at least a 24-hour delay between this CT angiogram and any follow-up imaging with contrast. Notified Loc Machuca MD at 04/08/2023 11:27 AM. Abdomen Ultrasound 04/08/23 11:28 Impression: 1. Hepatic cyst 1.5 cm RIGHT lobe. 2. No splenic mass identified. 3. Normal gallbladder. Laboratory Results WBC 6.5 10^3/uL (4.0-10.0) 04/10/23 01:08 RBC 3.85 10^6/uL (4.1-5.3) L 04/10/23 01:08 Hgb 12.3 g/dL (11.7-16.6) 04/10/23 01:08 Hct 36.4 % (42.0-52.0) L 04/10/23 01:08 MCV 94.5 fl (80-94) H 04/10/23 01:08 MCH 31.9 pg (28.0-34.0) 04/10/23 01:08 MCHC 33.8 g/dL (30.0-36.0) 04/10/23 01:08 RDW 12.9 % (12.1-15.1) 04/10/23 01:08 Plt Count 221 10^3/cmm (130-400) 04/10/23 01:08 MPV 11.7 fL (7.4-10.4) H 04/10/23 01:08 Neut % (Auto) 64.5 % 04/10/23 01:08 Lymph % (Auto) 23.9 % 04/10/23 01:08 [place] % (Auto) 9.0 % 04/10/23 01:08 Eos % (Auto) 2.1 % 04/10/23 01:08 Baso % (Auto) 0.2 % 04/10/23 01:08 Neut # (Auto) 4.20 10^3/uL (1.8-7.7) 04/10/23 01:08 Lymph # (Auto) 1.6 10^3/uL (0.8-4.8) 04/10/23 01:08 [place] # (Auto) 0.6 10^3/uL (0.2-0.9) 04/10/23 01:08 Eos # (Auto) 0.1 10^3/uL (0.0-0.8) 04/10/23 01:08 Baso # (Auto) 0.0 10^3/uL (0.0-0.1) 04/10/23 01:08 Nucleated RBC % (auto) 0 % 04/10/23 01:08 Nucleated RBCs # 0.0 /100WBC 04/10/23 01:08 Sodium 138 mmol/L (136-145) 04/10/23 01:08 Potassium 4.0 mmol/L (3.5-5.1) 04/10/23 01:08 Chloride 104 mmol/L (98-107) 04/10/23 01:08 Carbon Dioxide 21 mmol/L (22-29) L 04/10/23 01:08 Anion Gap 17.0 (5-19) 04/10/23 01:08 BUN 15 mg/dL (8-23) 04/10/23 01:08 Creatinine 1.1 mg/dL (0.7-1.2) 04/10/23 01:08 GFR Calculation Not Reportable 04/10/23 01:08 Glucose 212 mg/dL (65-115) H 04/10/23 01:08 POC Glucose 256 mg/dL (70-110) H 04/10/23 06:26 Estimat Average Glucose 146 04/07/23 20:55 Hemoglobin A1c 6.7 % (4.0-6.0) H 04/07/23 20:55 Calculated Osmolality 293 mOsm/kg (285-295) 04/10/23 01:08 Lactic Acid 2.3 mmol/L (0.5-2.2) H 04/07/23 18:50 Lactic Acid (Sepsis) 2.4 mmol/L (0.5-2.2) H 04/07/23 20:55 Calcium 8.1 mg/dL (8.5-10.5) L 04/10/23 01:08 Phosphorus 3.4 mg/dL (2.5-4.5) 04/08/23 00:43 Magnesium 1.8 mg/dL (1.7-2.3) 04/08/23 00:43 Total Bilirubin 0.6 mg/dL (0.15-1.2) 04/07/23 15:17 AST 19 U/L (0-40) 04/07/23 15:17 ALT 17 U/L (0-41) 04/07/23 15:17 Alkaline Phosphatase 54 U/L (40-130) 04/07/23 15:17 Troponin T Baseline 19 ng/L (0-15) H 04/07/23 18:50 Troponin T 120 Minute 21.76 ng/L (0-15) H 04/07/23 20:55 Delta Troponin T 2.76 ABS# (0-10) 04/07/23 20:55 Troponin T Hi Sens 6Hr 24.80 ng/L (0-15) H 04/08/23 00:43 Troponin T Hi Sens 6Hr Delta 5.80 ng/L (0-12) 04/08/23 00:43 C-Reactive Protein 24.5 mg/L (0.0-4.9) H 04/07/23 18:50 NT-Pro-B Natriuret Pep 441 pg/mL (0-450) 04/07/23 18:50 Total Protein 7.0 g/dL (6.6-8.7) 04/07/23 15:17 Albumin 3.9 g/dL (3.5-5.2) 04/07/23 15:17 Globulin 3.1 g/dL (1.3-4.6) 04/07/23 15:17 Triglycerides 133 mg/dL (0-150) 04/07/23 20:55 Cholesterol 152 mg/dL (0-200) 04/07/23 20:55 LDL Cholesterol, Calc 91 mg/dL (50-129) 04/07/23 20:55 HDL Cholesterol 34 mg/dL (60-100) L 04/07/23 20:55 LDL/HDL Ratio 2.68 RATIO (0.00-3.22) 04/07/23 20:55 Cholesterol/HDL Ratio 4.47 mg/dL (1.0-5.00) 04/07/23 20:55 Procalcitonin 0.08 ng/mL (0-0.5) 04/07/23 18:50 TSH 3.59 uIU/mL (0.27-4.20) 04/07/23 20:55 Urine Color Yellow (Yellow) 04/07/23 18:50 Urine Appearance Cloudy (CLEAR) A 04/07/23 18:50 Urine pH 5 (5-7) 04/07/23 18:50 Ur Specific [place] 1.015 (1.005-1.030) 04/07/23 18:50 Urine Protein 1+ (Negative) H 04/07/23 18:50 Urine Glucose (UA) Norm (Normal) 04/07/23 18:50 Urine Ketones Negative (Negative) 04/07/23 18:50 Urine Blood Neg (Negative) 04/07/23 18:50 Urine Nitrate Negative (Negative) 04/07/23 18:50 Urine Bilirubin Neg (Negative) 04/07/23 18:50 Urine Urobilinogen Neg mg/dL (Negative) 04/07/23 18:50 Ur Leukocyte Esterase 2+ (Negative) H 04/07/23 18:50 Urine RBC 0-4 /hpf (0-2) H 04/07/23 18:50 Urine WBC >100 /hpf (0-5) H 04/07/23 18:50 Ur Squamous Epith Cells 0-4 /hpf (0-5) H 04/07/23 18:50 Amorphous Sediment Not Reportable 04/07/23 18:50 Urine Bacteria 2+ /hpf (NONE) H 04/07/23 18:50 Nasal Influ A H1 2008 PCR Not detected (NOT DETECT) 04/07/23 21:15 Adenovirus (PCR) Not detected (NOT DETECT) 04/07/23 21:15 C. pneumoniae DNA (PCR) Not detected (NOT DETECT) 04/07/23 21:15 Coronavirus 229E (PCR) Not detected (NOT DETECT) 04/07/23 21:15 Human Metapneumovir PCR Not detected (NOT DETECT) 04/07/23 21:15 Influenza A (H1) PCR Not detected (NOT DETECT) 04/07/23 21:15 Influenza A (H3) PCR Not detected (NOT DETECT) 04/07/23 21:15 Influenza Type A (PCR) Not detected (NOT DETECT) 04/07/23 21:15 Influenza Type B (PCR) Not detected (NOT DETECT) 04/07/23 21:15 M. pneumoniae (PCR) Not detected (NOT DETECT) 04/07/23 21:15 Parainfluenza 1 (PCR) Not detected (NOT DETECT) 04/07/23 21:15 Parainfluenza 2 (PCR) Not detected (NOT DETECT) 04/07/23 21:15 Parainfluenza 3 (PCR) Not detected (NOT DETECT) 04/07/23 21:15 Parainfluenza 4 (PCR) Not detected (NOT DETECT) 04/07/23 21:15 RSV Type A (PCR) Not detected (NOT DETECT) 04/07/23 21:15 RSV Type B (PCR) Not detected (NOT DETECT) 04/07/23 21:15 Entero/Rhino (PCR) Not detected (NOT DETECT) 04/07/23 21:15 SARS-CoV-2 (PCR) Not detected (NOT DETECT) 04/07/23 21:15 Vitals Last Vital Signs Temp 98.2 F 04/10/23 07:27 Pulse 59 L 04/10/23 08:00 Resp 16 04/10/23 08:00 BP 186/77 04/10/23 07:27 Pulse Ox 96 04/10/23 08:00 O2 Del Method Room Air 04/10/23 08:00 Discharge Plan Discharge Patient Disposition: Xfer SNF Condition: Stable Prescriptions: New clopidogrel 75 mg Tablet 75 mg PO DAILY 19 Days Qty: 19 0RF amlodipine 10 mg Tablet 10 mg PO DAILY 30 Days Qty: 30 0RF lisinopril 10 mg Tablet 10 mg PO BID 30 Days Qty: 60 0RF Humalog U-100 Insulin 100 unit/mL Solution See Rx Instructions .ROUTE .COMPLEX Qty: 10 0RF Rx Instructions: 0 unit subcutaneously ;inject, subcut, three times daily after meals, based on sliding scale provided cefdinir 300 mg Capsule 300 mg PO BID 5 Days Qty: 10 0RF atorvastatin 40 mg tablet 40 mg PO DAILY 30 Days Qty: 30 0RF Continued aspirin [Adult Low Dose Aspirin] 81 mg tablet,delayed release (DR/EC) 81 mg PO DAILY tamsulosin 0.4 mg capsule 0.4 mg PO BEDTIME metformin 1,000 mg tablet 1,000 mg PO BID metoprolol tartrate 25 mg tablet 25 mg PO BID duloxetine 60 mg capsule,delayed release(DR/EC) 60 mg PO DAILY Changed Levemir FlexTouch U-100 Insuln 100 unit/mL (3 mL) insulin pen See Rx Instructions .ROUTE .COMPLEX Qty: 3 0RF Rx Instructions: 5 units in the am and 5 units at bedtime Discontinued amlodipine 5 mg tablet 5 mg PO QAM benazepril 40 mg tablet 40 mg PO QAM glipizide 5 mg tablet See Rx Instructions .ROUTE .COMPLEX Rx Instructions: 5mg po qam and 10mg po qpm Discharge Orders: Discharge Order (Routine); Ordered 04/10/23 Ordered By: Loc Machuca Other Ambulatory Orders: DME: Walker (Order) Location: None Selected Ordered By: Loc Machuca Referrals: [facility] ([facility]) [Outside] Farhat Dominguez MD [Primary Care Provider] - 04/16/23 10:20 am Clint Ha MD [Physician] - 2 weeks Datar,Monster Bass MD [Physician] - 1-3 days Discharge Diet: Cardiac Discharge Activity: Resume usual activity Patient Instructions: Lisinopril (By mouth), Amlodipine (By mouth), Atorvastatin (By mouth), Clopidogrel (By mouth), Cefdinir (By mouth), Insulin Lispro (By injection), How to Stop Smoking (ED), Cigarette Smoking and Your Health (GEN), Ischemic Stroke (DC), Opioid Safety Activity Restrictions/Additional Instructions: -Inject levemir 5 units q12h -Please monitor your blood sugars closely -Monitor your blood sugars 3 times daily as after meals -Please record your blood sugars, and a blood sugar log -For your NovoLog -Please inject blood sugar after meals based on sliding scale provided -Do not inject insulin if you do not eat as hypoglycemia kills -This is a NovoLog sliding scale -Insulin sliding ?fingerstick? Insulin ?141-180?0 units/sq 181-220?2 units/sq ?221-260?4 units/sq ?261-300 6 units/sq ?301-350?8 units/sq ?351-400 10 units/sq ?401-450?12 units/sq >450? 14units/sq -If your blood sugar is greater than 500 go to the emergency room -If your blood sugar is less than 60 or at anytime you feel lightheaded or dizzy or diaphoretic or have chest palpitations check your blood sugar, and eat a hard candy or drink orange juice and go immediately to the emergency room -Remember hypoglycemia kills, so if his blood sugar is less than 60 we have to increase it by taking in a sugary meal such as a hard candy or orange juice and go to the emergency room -If you have any questions please call us where here to help -monitor blood pressure closely, slowly lower blood pressure -take aspirin -take plavix for 19 more days then stop -take atorvastatin 40mg once daily -please have primary care recheck blood work in one week Discharge Attestations Time Spent in Discharge Care*: greater than 30 min Quality Metrics Clinical Quality Measures [ Cerebrovascular Accident { Contraindication to Antithrombotic: None; antithrombotic prescribed; Contraindication to Anticoagulation: Overlap treatment not indicated; Contraindication to Statin: None; Statin prescribed;}] Coding Level of Care Code 80839 Total time (in minutes) for Discharge: 45 Diagnoses Acute CVA (cerebrovascular accident) I63.9 Pneumonia J18.9 Acute kidney injury N17.9 History of COPD Z87.09 History of BPH Z87.438 History of CVA (cerebrovascular accident) Z86.73 History of hypertension Z86.79 History of type 2 diabetes mellitus Z86.39 Cerebrovascular accident I63.9 CVA mechanism: unspecified Community acquired pneumonia J18.9 Laterality: right Lung location: unspecified part of lung COPD (chronic obstructive pulmonary disease) J44.9 Encounter for smoking cessation counseling Z71.6 Mass of upper lobe of right lung R91.8
--- NOTE | 2023-04-10 12:20 | PC.SOCIAL ---
Pg 2 IMM Explained to pt Pg 2 IMM. No questions voiced. Provided pt a copy. Initialed, dated, & timed a copy & placed in chart.
--- NOTE | 2023-04-10 12:45 | PC.NURSE ---
Report called to Chitra Monge at this time. She says that she jeri be here at 2 to pick him up.
[2023-04-10 13:58] LABS: SARS Covid-2 Antigen negative
--- NOTE | 2023-04-10 14:11 | PC.NURSE ---
Patient assisted into wheel chair and pushed to Replaced by [facility].
[2023-04-10 16:40] LABS: Glucose Point of Care 238 mg/dL (70-110)
== END 2023-04-10 14:00 | disposition skilled nursing facility (03) | DRG 64 ==
LOC: ER 17:46 → MEDSURG 19:01
PROVIDERS: Admitting Provider Family Medicine; Emergency Provider Emergency Medicine; PCP Internal Medicine; Visit Provider Family Medicine
DX: I63.9 Cerebral infarction, unspecified (principal); J18.9 Pneumonia, unspecified organism; I69.351 Hemiplegia and hemiparesis following cerebral infarction affecting right dominant side; N39.0 Urinary tract infection, site not specified; N17.9 Acute kidney failure, unspecified; R47.81 Slurred speech; F17.210 Nicotine dependence, cigarettes, uncomplicated; R29.706 NIHSS score 6; I10 Essential (primary) hypertension; J44.9 Chronic obstructive pulmonary disease, unspecified; E11.9 Type 2 diabetes mellitus without complications; Z79.02 Long term (current) use of antithrombotics/antiplatelets; Z79.82 Long term (current) use of aspirin; Z79.4 Long term (current) use of insulin; N40.0 Benign prostatic hyperplasia without lower urinary tract symptoms; Z88.0 Allergy status to penicillin; R91.8 Other nonspecific abnormal finding of lung field; R29.6 Repeated falls
CPT/HCPCS: 36415; 36416; 70450; 70496; 70498; 71045; 71275; 76700; 80048; 80053; 80061; 81001; 82962; 83036; 83605; 83735; 83880; 84100; 84145; 84443; 84484; 85025; 86140; 87040; 87086; 87426; 87486; 87581; 87633; 92523; 92610; 93005; 93306; 94664; 96372; 97110; 97116; 97161; 97165; 97535; 99285; C9113; J0456; J0696; J1650; J1815; J2543; J7030; J7050; Q9967